=== PATIENT | male | born 1995 | race Two or more races ===

== ENCOUNTER 2024-11-28 19:10 | Emergency (ER) | payer MEDICAID, OTHER ==
[~2024-11-28] VITALS: Ht 190.5 cm; Wt 77.1 kg
[2024-11-28] MEDS: ACETAMINOPHEN 325 MG TABLET PO ONE (20:12)
[2024-11-28] MEDS: IBUPROFEN 600 MG TABLET PO ONE (20:12)
[2024-11-28 21:54] VITALS: BP 109/81; TEMP 98.6; O2SAT 98
== END 2024-11-28 21:54 | disposition home or self-care (01) ==
LOC: ER 19:15
DX: S63.612A Unspecified sprain of right middle finger, initial encounter (principal); X50.1XXA Overexertion from prolonged static or awkward postures, initial encounter; Y93.73 Activity, racquet and hand sports; Y92.89 Other specified places as the place of occurrence of the external cause; Y99.8 Other external cause status
CPT/HCPCS: 73130-TC